=== PATIENT | female | born 1960 | race African-American/Black ===

== ENCOUNTER 2018-03-18 21:37 | Emergency (ER) | payer OTHER ==
[2018-03-18 21:45] VITALS: BP 142/107; PULSE 94; TEMP 98.1; BMI 42.5
--- NOTE | 2018-03-18 21:46 | PDOC ---
Rapid Medical Evaluation Time Seen by Provider: 03/18/18 21:42 Medical Evaluation: 03/18/18 21:43 I have performed a brief in-person evaluation of this patient. The patient presents with a chief complaint of: left facial swelling Pertinent physical exam findings: left parotid swelling I have ordered the following: nothing The patient will proceed to the ED for further evaluation. Discharge Disposition - Diagnosis Left facial swelling - Referrals - Patient Instructions - Post Discharge Activity
--- NOTE | 2018-03-18 22:23 | PDOC ---
History of Present Illness - General Chief Complaint: Edema Stated Complaint: ALLERGIC REACTION Time Seen by Provider: 03/18/18 21:42 History Source: Patient Exam Limitations: No Limitations - History of Present Illness Initial Comments: 03/18/18 22:17 57-year-old woman without significant past medical history presents emergency Department with atraumatic left-sided facial swelling while eating dinner tonight. Patient states she was eating chicken quesadillas when she felt a piece of the tortilla became lodged under her tongue on the left side of the mouth. Patient states she attempted a couple of times to press against the bottom of the mouth and remove the piece of tortilla and was successful after 30 seconds of digital manipulation. Patient noted after this she began to have swelling to the left jawline and after approximately 20 minutes the swelling started to spontaneously resolve. She denies any fevers, chills, trauma. Past History - Past Medical History Allergies/Adverse Reactions: Allergies Allergy/AdvReac Type Severity Reaction Status Date / Time shrimp Allergy Verified 03/18/18 21:43 COPD: No HTN: Yes - Suicide/Smoking/Psychosocial Hx Smoking History: Never smoked Review of Systems - Review of Systems Able to Perform ROS?: Yes Is the patient limited [place] proficient: No Constitutional: No: Symptoms Reported HEENTM: Yes: See HPI Respiratory: No: Symptoms reported Cardiac (ROS): No: Symptoms Reported ABD/GI: No: Symptoms Reported : No: Symptoms Reported Musculoskeletal: No: Symptoms Reported Integumentary: No: Symptoms Reported Neurological: No: Symptoms reported *Physical Exam - Vital Signs Last Vital Signs Temp Pulse Resp BP Pulse Ox 98.1 F 94 H 18 142/107 98 03/18/18 21:43 03/18/18 21:43 03/18/18 21:43 03/18/18 21:43 03/18/18 21:43 - Physical Exam General Appearance: Yes: Appropriately Dressed. No: Apparent Distress HEENT: positive: EOMI, BAM, Normal ENT Inspection, Normal Voice, Symmetrical, TMs Normal, Pharynx Normal, Other (No sublingual or submental edema upon palpation.). negative: Excessive drooling Neck: positive: Trachea midline, Supple. negative: Stridor Respiratory/Chest: positive: Lungs Clear, Normal Breath Sounds. negative: Respiratory Distress, Accessory Muscle Use Cardiovascular: positive: Regular Rhythm, Regular Rate. negative: Murmur Neurologic: positive: Alert, Normal Response Medical Decision Making - Medical Decision Making 03/18/18 22:23 A/P: 57-year-old woman with left-sided parotid swelling Airway patent. No stridor noted. Lungs clear to auscultation bilaterally. Reevaluation the patient from rapid medical evaluation reveals that the swelling has decreased significantly and is almost completely resolved at this time. No tenderness upon palpation Palpation of the oropharynx did not reveal any palpable stones Patient with resolved sialolithiasis Patient was instructed to suck on hard candies that are sour. Given absence of infectious symptoms I will defer antibiotic treatment at this time. As explained to the patient should she start to develop infectious symptoms she should return to the emergency department immediately. Patient verbalizes understanding of discharge instructions. *DC/Admit/Observation/Transfer Diagnosis at time of Disposition: Parotid sialolithiasis - Discharge Dispostion Disposition: HOME Condition at time of disposition: Stable Decision to Admit order: No - Referrals Referrals: Amanda Godfrey MD [Primary Care Provider] - - Patient Instructions Additional Instructions: Sucking on hard candies especially sour hard candies may relieve the symptoms are experiencing. Return to emergency department for fevers, chills, worsening swelling, difficulty breathing, shortness of breath. - Post Discharge Activity
== END 2018-03-18 23:11 | disposition home or self-care (01) ==
LOC: JERFT 21:37
DX: K11.5 Sialolithiasis (principal)
CPT/HCPCS: 99281-25

== ENCOUNTER 2018-07-19 20:49 | Emergency (ER) | payer BC, OTHER ==
[2018-07-19 21:00] VITALS: BP 126/74; PULSE 89; TEMP 98.6; BMI 40.2
[2018-07-19] MEDS ORDERED: DIPHTH,PERTUSS(ACELL),TET 0.5 ML DISP.SYRIN IM ONE (21:02)
--- NOTE | 2018-07-19 21:02 | PDOC ---
Rapid Medical Evaluation Time Seen by Provider: 07/19/18 20:57 Medical Evaluation: Allergies Allergy/AdvReac Type Severity Reaction Status Date / Time shrimp Allergy Verified 03/18/18 21:43 07/19/18 20:57 I have performed a brief in-person evaluation of this patient. The patient presents with a chief complaint of: injury after fall from ladder today at home. Complaining of pain to right shoulder. Denies head strike. Unknown tetanus status Pertinent physical exam findings are: NAD even and unlabored breathing bruising to left calf right foot with superficial laceration to right instep I have ordered the following: left tib/fib xray and right foot ankle xray The patient will proceed to the ED for further evaluation. Discharge Disposition - Referrals Referrals: Amanda Godfrey MD [Primary Care Provider] - - Patient Instructions - Post Discharge Activity
[2018-07-19] MEDS ORDERED: ONDANSETRON *ODT* 4 MG TABLET ONE (22:33)
[2018-07-19] MEDS ORDERED: ONDANSETRON 4 MG TABLET PO ONE (22:34)
--- NOTE | 2018-07-19 22:45 | PDOC ---
History of Present Illness - General Chief Complaint: Injury Stated Complaint: FALL,INJURY Time Seen by Provider: 07/19/18 20:57 - History of Present Illness Initial Comments: 57-year-old female with a past medical history significant for hypertension she takes Norvasc presents for evaluation of a right foot laceration. She fell off a step stool lacerating her right foot. Did not hit her head no postinjury nausea vomiting visual changes or loss of consciousness. She complains of left lower leg pain and right foot pain. 07/19/18 22:38 Past History - Past Medical History Allergies/Adverse Reactions: Allergies Allergy/AdvReac Type Severity Reaction Status Date / Time shrimp Allergy Verified 07/19/18 22:41 Home Medications: Ambulatory Orders Unobtainable 07/19/18 COPD: No HTN: Yes - Suicide/Smoking/Psychosocial Hx Smoking History: Never smoked Information on smoking cessation initiated: No Hx Alcohol Use: No Drug/Substance Use Hx: No Review of Systems - Review of Systems Musculoskeletal: Yes: See HPI All Other Systems: Reviewed and Negative *Physical Exam - Vital Signs Last Vital Signs Temp Pulse Resp BP Pulse Ox 98.6 F 89 20 126/74 98 07/19/18 20:56 07/19/18 20:56 07/19/18 20:56 07/19/18 20:56 07/19/18 20:56 - Physical Exam Comments: HEAD: NC/AT EYES: Conjuntiva clear R PERRL L prior corneal and pupillary trauma, EOMI Ears: Canals and TM's normal NOSE: No d/c THROAT: Moist mucous membrances, oral pharanx clear, uvula midline NECK: Supple without adenopathy CARDIAC: S1 S2 LUNGS: CTA Full and Equal breath sounds ABDOMEN: Soft NT ND MS: Full ROM in all joints without edema NEUROLOGIC: No gross sensory or motor deficits, NVID SKIN: Normal color and temperature no lesions or rashes There is a 2 cm laceration exposing subcutaneous fat on the medial aspect of the right foot linear. No gross sensorimotor deficits in the right foot there is a small amount of subcutaneous fat peeking out of the wound. There is a large hematoma in the left calf. There is appropriate tenderness. No tenderness about the fibula or tibia. Full passive range of motion of the knee and ankle as well as the toes without discomfort compartments are soft. There are no gross sensorimotor deficits. 07/19/18 22:38 ED Treatment Course - Medications Given in the ED: ED Medications Discontinued Medications Generic Name Dose Route Start Last Admin Trade Name Jesus PRN Reason Stop Dose Admin Diphtheria/Tetanus/Acell Pertussis 0.5 ml 07/19/18 21:02 07/19/18 22:04 Boostrix - IM 07/19/18 21:03 0.5 ml .ONCE ONE Administration Ondansetron HCl 4 mg 07/19/18 22:34 07/19/18 22:34 Zofran - PO 07/19/18 22:35 4 mg NOW ONE Administration Medical Decision Making - Medical Decision Making 6 mL of 1% lidocaine without epinephrine were used to anesthetize the wound of the right foot. This was tolerated well and done aseptically. The wound was copiously irrigated and flushed explored to its patient a bloodless field without any identification of foreign body. 5 3-0 interrupted nylon sutures were used to approximate the wound edges. This was tolerated well a dry sterile dressing was placed topical antibiotics ointment was used as well. 07/19/18 22:40 *DC/Admit/Observation/Transfer Diagnosis at time of Disposition: Contusion of lower arm, left, Laceration of foot - Discharge Dispostion Disposition: HOME Condition at time of disposition: Stable Decision to Admit order: No - Referrals Referrals: Amanda Godfrey MD [Primary Care Provider] - Jimmy Morse MD [Staff Physician] - - Patient Instructions Additional Instructions: Return to the emergency room should he develop any increasing pain in the left lower leg. keep the extremity elevated. He may apply ice but do not compress the lower leg. You may take Tylenol for pain as directed. Keep the wound on your right foot clean and dry for the next 48 hours. After 48 hours you may leave it open to air after he washes with soap and water. If begins to drain get red swollen or increasingly tender please return to the emergency room. He may follow-up with orthopedic surgery for further wound management of your right foot and left lower leg injury otherwise return to the emergency room in 10 days for suture removal of the right foot laceration that was repaired this evening. - Post Discharge Activity Forms/Work/School Notes: Back to Work
== END 2018-07-19 22:57 | disposition home or self-care (01) ==
LOC: JERFT 20:49
PROC: 3E0234Z Introduction of Serum, Toxoid and Vaccine into Muscle, Percutaneous Approach (ICD-10-PCS; principal; 2018-07-19)
PROC: 0HQMXZZ Repair Right Foot Skin, External Approach (ICD-10-PCS; 2018-07-19)
DX: S91.311A Laceration without foreign body, right foot, initial encounter (principal); S80.12XA Contusion of left lower leg, initial encounter; M25.511 Pain in right shoulder; W11.XXXA Fall on and from ladder, initial encounter; Y93.89 Activity, other specified; Y92.038 Other place in apartment as the place of occurrence of the external cause; Y99.8 Other external cause status
CPT/HCPCS: 73590-TC-LT-FY; 73610-TC-RT-FY; 73630-TC-RT-FY; 90715; 99281-25

== ENCOUNTER 2025-02-28 16:28 | Emergency (ER) | payer OTHER, BC ==
[2025-02-28 17:04] VITALS: BP 103/61; PULSE 82; RESP 18; TEMP 98.4; BMI 41.5
[2025-02-28] MEDS ORDERED: IBUPROFEN 600 MG TABLET (FP) PO ONE (17:07)
[2025-02-28] MEDS: IBUPROFEN 600 MG TABLET (FP) PO ONE (17:11)
== END 2025-02-28 19:16 | disposition home or self-care (01) ==
LOC: FER 16:28
DX: S40.021A Contusion of right upper arm, initial encounter (principal); M25.512 Pain in left shoulder; M79.642 Pain in left hand; W01.0XXA Fall on same level from slipping, tripping and stumbling without subsequent striking against object, initial encounter; Y99.0 Civilian activity done for income or pay
CPT/HCPCS: 73030-TC-LT-FY; 73130-TC-LT-FY; 73502-TC-LT-FY; 99284-25